=== PATIENT | female | born 1985 ===

== ENCOUNTER → 2020-07-13 | Outpatient (CLI) | payer OTHER ==
[2020-07-14 14:10] LABS: HPV 16 Negative (Negative); HPV 18 Negative (Negative); HPV OTHER HR TYPES Negative (Negative)
== END ==
LOC: LAB SHORT 15:08 → LAB 15:08
PROVIDERS: Advanced Practice Midwife
DX: Z01.419 Encounter for gynecological examination (general) (routine) without abnormal findings (principal)
CPT/HCPCS: 87624; G0123